=== PATIENT | female | born 1990 | race Caucasian/White ===

== ENCOUNTER 2017-02-11 17:57 | Emergency (ER) | payer BC ==
[~2017-02-11] VITALS: Ht 160 cm; Wt 94.0 kg
[2017-02-11 18:03] VITALS: BP 141/77; PULSE 87; RESP 16; TEMP 98.1; O2SAT 99
[2017-02-11] MEDS ORDERED: MACR100C2 PO (18:17)
[2017-02-11] MEDS ORDERED: PRENTAB7 (18:18)
[2017-02-11] MEDS ORDERED: MORPHINE SULFATE 2 MG/ML INJ IV PUSH ONE (18:30)
--- NOTE | 2017-02-11 18:51 | PD ---
HPI Chief Complaint: Related Problem Time Seen by Provider: 18:11 Travel History International Travel<30 days: No Contact w/Intl Traveler<30days: No Traveled to known affect area: No History of Present Illness HPI 26-year-old 9 weeks by dates female presents to the emergency room for evaluation of vaginal bleeding, back pain, and cramping during . Patient states she woke up this morning with slight blood-tinged mucus. She went to [facility] earlier today where she had a transvaginal/transabdominal ultrasound that showed intrauterine with a gestational age of 6 weeks and 5 days and a positive heart rate of 120 beats per minute. There were unable to visualize the ovaries. There is no subchorionic hematoma. After being discharged, she had significant increase in her bleeding. She also had worsening of her tach pain and pelvic cramping. Patient had an early miscarriage in October of this year. No other chronic medical conditions. She is currently being treated for UTI with Macrobid. She is also taking vitamins. States she saw her OB at 6 weeks who told her that she had an intrauterine measuring about 6 weeks with a heart beat around what it was today. LMP was December 05, 2016. Denies dysuria, urgency, and frequency. PFSH Past Medical History Cardiovascular Problems: Yes (P.O.T.S.) Medical other: Yes (VIT D DEFICIENCY) ?: LMP: december 05 : 2 Miscarriage: 1 Social History Alcohol Use: No Tobacco Use: No Substance Use: No Allergies-Medications (Allergen,Severity, Reaction): Coded Allergies: penicillin G (Verified Allergy, Severe, Hives, 02/11/17) Reported Meds & Prescriptions Reported Meds & Active Scripts Active Reported Vitamins Tablet (Pnv No.95/Ferrous Fum/Folic AC) 28 Mg Iron-800 Mcg Tablet DAILY Macrobid (Nitrofurantoin Monoh/Nitrofur Macro) 100 Mg Cap 100 Mg PO BID Review of Systems Except as stated in HPI: all other systems reviewed are Neg Physical Exam Narrative GENERAL: Well-nourished, well-developed female in no acute distress. Afebrile. Ambulatory. SKIN: Focused skin assessment warm/dry. HEAD: Normocephalic. EYES: No scleral icterus. No injection or drainage. NECK: Supple, trachea midline. No JVD or lymphadenopathy. CARDIOVASCULAR: Regular rate and rhythm without murmurs, gallops, or rubs. RESPIRATORY: Breath sounds equal bilaterally. No accessory muscle use. GASTROINTESTINAL: Abdomen soft, non-tender, nondistended. Very mild tenderness to palpation of the pelvic region. No CVA tenderness. Data Data Last Documented VS Vital Signs Date Time Temp Pulse Resp B/P (MAP) Pulse Ox O2 Delivery O2 Flow Rate FiO2 02/11/17 18:03 98.1 87 16 141/77 (98) 99 Orders Orders Beta Hcg (Quant/Titer) (02/11/17 18:23) Us Pelvis (Ques Preg/Ectopic) (02/11/17 ) Morphine Inj (Morphine Inj) (02/11/17 18:30) MDM Medical Decision Making Medical Screen Exam Complete: Yes Emergency Medical Condition: Yes Medical Record Reviewed: Yes Interpretation(s) Diagnostic imaging report and labs the patient brought with her reported below: Ultrasound, transvaginal and transabdominal performed on 02/11/2017 at [facility]. Findings: Uterus: The uterus measures 7.6 craniocaudal by 5.9 AP by 6.9 cm transabdominally. It measures 7 x 5.2 x 6.6 cm transvaginally. There is a single, intrauterine . Based upon crown-rump length, just the gestational age is 6 weeks and 5 days. Positive heart rate of 120 beats per minute. There is adequate amount of amniotic fluid. There is no subchorionic hematoma. Uterus is otherwise unremarkable. Right ovary: Not visualized. Left ovary: Not visualized. Other: No pelvic mass or significant free fluid identified. . CBC and CMP performed earlier today are essentially unremarkable. UA is remarkable for red blood cells. Differential Diagnosis Miscarriage, threatened miscarriage, ectopic Narrative Course 21-year-old approximately 9 weeks by date female presents to the emergency room for evaluation of pelvic pain, low back pain, and vaginal bleeding. Cramping and low back pain started 2 days ago. Bleeding started today. She went to another hospital and had an ultrasound that showed intrauterine measuring 3 weeks early with a heartbeat of 120 beats for minute no subchorionic hemorrhage. Ovaries were not visualized. There is no record of beta hCG. Beta hCG was drawn here. Ultrasound will be repeated to visualize ovaries. Abdomen soft, mildly tender to palpation over the pelvic region. No peritoneal signs. Patient states her blood type is A+ and was just drawn this morning. She also has record from October, that show's is A positive. No indication for RhoGAM. She will be signed out to nighttime provider pending labs and ultrasound report. Condition: Stable Erika Morales Feb 11, 2017 18:51
[2017-02-11 19:40] VITALS: RESP 16
--- NOTE | 2017-02-11 20:57 | RADRPT ---
EXAM DATE/TIME: 02/11/2017 19:52 [facility] COMPARISON: No previous studies available for comparison. INDICATIONS : Vaginal bleeding. LAB(S): Beta-hC MEDICAL HISTORY : . P.O.T.S. SURGICAL HISTORY : None. ENCOUNTER: Initial ACUITY: 1 day PAIN SCORE: 3/10 LOCATION: Bilateral pelvis MEASUREMENTS: UTERUS: 8.4 x 4.4 x 5.2 cm ENDOMETRIAL STRIPE: 15 mm RIGHT OVARY: 2.7 x 2.0 x 2.8 cm LEFT OVARY: 2.8 x 1.8 x 1.9 cm FREE FLUID: No CROWN RUMP LENGTH: Not visualized. = WKS DAYS FHR: Not visualized. BPM FINDINGS: UTERUS: Thickened heterogeneous endometrial stripe. No discrete gestational sac identified. No anatomy identified. No yolk sac identified. RIGHT OVARY: Ovary contains no mass or significant cystic lesion. LEFT OVARY: Ovary contains no mass or significant cystic lesion. MISCELLANEOUS: No free fluid. CONCLUSION: Thickened heterogeneous endometrial stripe. No gestational sac identified. Lee Calderón MD on February 11, 2017 at 20:54 Board Certified Radiologist. This report was verified electronically.
--- NOTE | 2017-02-11 21:16 | PD ---
Physical Exam Date Seen by Provider: Feb 11, 2017 Narrative This patient was initially evaluated by DONNY Berrios. The patient presents with pelvic pain and vaginal bleeding. She is . She was seen at an outside facility earlier today with similar symptoms had an ultrasound at that time that showed a viable fetus. After leaving that facility, the cramping and bleeding became much worse. She subsequently presented here for evaluation and treatment. She is followed by [facility] at [place]. She is Rh+. Data Data Last Documented VS Vital Signs Date Time Temp Pulse Resp B/P (MAP) Pulse Ox O2 Delivery O2 Flow Rate FiO2 02/11/17 19:40 16 02/11/17 18:03 98.1 87 141/77 (98) 99 Orders Orders Beta Hcg (Quant/Titer) (02/11/17 18:23) Morphine Inj (Morphine Inj) (02/11/17 18:30) Us Pelvis (Ques Pr/Ect)W Trans (02/11/17 ) Misoprostol (Cytotec) (02/11/17 21:30) Labs Laboratory Tests Test 02/11/17 18:35 Human Chorionic Gonadotropin, Quant [id number] MIU/ML MDM Supervised Visit with MAL: Yes Narrative Course I, Dr. Farfan, have reviewed the advance practice practitioner's documentation and am in agreement, met with the patient face to face, made the diagnosis, and the medical decision making was done by me. *My assessment and Findings: Pelvic exam shows products of conception coming through the cervical os. Last Impressions Pelvis Ultrasound 02/11/17 0000 Signed Impressions: Service Date/Time: Saturday, February 11, 2017 19:52 - CONCLUSION: Thickened heterogeneous endometrial stripe. No gestational sac identified. Lee Calderón MD The patient and her have been made aware of the findings. The case was discussed with Dr. gallardo who recommended Cytotec 800 mg buccally. This has been ordered. Diagnosis Primary Impression: Incomplete Referrals: [facility] Patient Instructions: General Instructions, Miscarriage (DC) Disposition: 01 DISCHARGE HOME Condition: Stable Karol Farfan MD Feb 11, 2017 21:16
[2017-02-11] MEDS ORDERED: oxyCODONE/ACETAMINOPHEN 5 MG/325 MG TAB PO ONE (21:30)
[2017-02-11] MEDS ORDERED: MISOPROSTOL 100 MCG TAB PO ONE (21:30)
[2017-02-11] MEDS ORDERED: NORC5TAB PO (21:37)
== END 2017-02-11 22:17 | disposition home or self-care (01) ==
LOC: NEPD 17:57
DX: O03.4 Incomplete spontaneous abortion without complication (principal); O23.41 Unspecified infection of urinary tract in pregnancy, first trimester; O26.891 Other specified pregnancy related conditions, first trimester; E55.9 Vitamin D deficiency, unspecified; Z3A.09 9 weeks gestation of pregnancy
CPT/HCPCS: 76700; 76817; 84702; 96374; 99285; J2270